=== PATIENT | male | born 1995 | race Caucasian/White ===

== ENCOUNTER 2020-03-31 21:18 | Emergency (ER) | payer MEDICAID ==
--- NOTE | 2020-03-31 22:57 | EDM.PDOC ---
ED HPI GENERAL MEDICAL PROBLEM - General Chief Complaint: ENT Problem Stated Complaint: UPPER RIGHT JAW PAIN Time Seen by Provider: 03/31/20 22:52 Source of Information: Reports: Patient History Limitations: Reports: No Limitations - History of Present Illness INITIAL COMMENTS - FREE TEXT/NARRATIVE: pt has upper jaw pain He has a carrious tooth in the postior upper rt molar a juan. Onset: Gradual, Other ( last 2-3 days. ) Duration: Hour(s): Location: Reports: Face Associated Symptoms: Reports: No Other Symptoms Right Upper Face/Facial Pain Score (Numeric/FACES): 9 - Related Data Allergies Allergy/AdvReac Type Severity Reaction Status Date / Time No Known Allergies Allergy Verified 03/31/20 21:42 Home Meds: Home Meds NK [No Known Home Meds] 03/31/20 [History] Past Medical History HEENT History: Reports: Otitis Media - Past Surgical History HEENT Surgical History: Reports: Myringotomy w Tube(s), Other (See Below) Other HEENT Surgeries/Procedures: ear surgery 8 yrs old Social & Family History - Tobacco Use Smoking Status *Q: Never Smoker - Caffeine Use Caffeine Use: Reports: Soda - Recreational Drug Use Recreational Drug Use: No ED ROS ENT - Review of Systems Review Of Systems: See Below Constitutional: Reports: No Symptoms HEENT: Reports: Dental Pain Respiratory: Reports: No Symptoms Cardiovascular: Reports: No Symptoms Endocrine: Reports: No Symptoms GI/Abdominal: Reports: No Symptoms : Reports: No Symptoms Musculoskeletal: Reports: No Symptoms Skin: Reports: No Symptoms Neurological: Reports: No Symptoms Psychiatric: Reports: No Symptoms ED EXAM, ENT - Physical Exam Exam: See Below Text/Narrative:: pt has pain in the upper molar area on the rt. Exam Limited By: No Limitations General Appearance: Alert, Anxious, Mild Distress Ears: Normal TMs Nose: Normal Inspection Mouth/Throat: Dental Tenderness, Other (pt is very tender when his most post upper rt molar has pressure on it. pt has very carrious teeth. ) Head: Atraumatic Neck: Normal Inspection Respiratory/Chest: No Respiratory Distress Cardiovascular: Regular Rate, Rhythm Course - Vital Signs Last Recorded V/S: Last Vital Signs Temp 36.6 C 03/31/20 21:36 Pulse 73 03/31/20 21:36 Resp 16 03/31/20 21:36 BP 151/100 H 03/31/20 21:36 Pulse Ox 96 03/31/20 21:36 - Orders/Labs/Meds Meds: Medications Discontinued Medications Generic Name Dose Route Start Last Admin Trade Name Norberto PRN Reason Stop Dose Admin Ketorolac Tromethamine 60 mg 03/31/20 22:58 03/31/20 23:02 Toradol IM 03/31/20 22:59 60 mg ONETIME ONE Administration - Re-Assessments/Exams Free Text/Narrative Re-Assessment/Exam: 03/31/20 22:56 pt was given torodol 60 mg im. Departure - Departure Time of Disposition: 22:57 Disposition: Home, Self-Care 01 Condition: Fair Clinical Impression: Infected tooth - Discharge Information Instructions: Dental Abscess, [id number] Referrals: PCP,None [Primary Care Provider] - Forms: ED Department Discharge Additional Instructions: take antibiotic as directed. follow up with the dental clinic on Saturday. Care Plan Goals: tramodol 50 mg q6h, amoxicillin 500mg tid, dental referal for Saturday. Sepsis Event Note (ED) - Evaluation Sepsis Screening Result: No Definite Risk
[2020-03-31] MEDS ORDERED: Ketorolac 60 MG/2 ML SDV IM ONE (22:58)
== END 2020-03-31 23:16 | disposition home or self-care (01) ==
LOC: JP.ED 21:18
DX: K04.7 Periapical abscess without sinus (principal); K02.9 Dental caries, unspecified
CPT/HCPCS: 96372; 99282; J1885

== ENCOUNTER 2020-05-12 11:56 | Emergency (ER) | payer MEDICAID ==
[2020-05-12] MEDS ORDERED: Ketorolac 60 MG/2 ML SDV IM ONE (13:09)
--- NOTE | 2020-05-12 13:31 | EDM.PDOC ---
ED HPI GENERAL MEDICAL PROBLEM - General Chief Complaint: Back Pain or Injury Stated Complaint: BACK PAIN Time Seen by Provider: 05/12/20 13:00 Source of Information: Reports: Patient History Limitations: Reports: No Limitations - History of Present Illness INITIAL COMMENTS - FREE TEXT/NARRATIVE: 24-year-old male who was carrying groceries into his house last evening when he became lightheaded and he thinks he fainted. He woke up with low back pain and lower extremity pain in his calves bilaterally. He took some ibuprofen, a second dose this morning but he still having trouble walking and having soreness in his leg so came in to be checked. He has some focal tenderness in his lower back. No nausea or vomiting, head injury, neck pain, difficulty breathing or concerns of seizures. Onset: Sudden Duration: Hour(s): (It was 14 hours ago when he fell) Location: Reports: Back, Lower Extremity, Left, Lower Extremity, Right Quality: Reports: Burning, Sharp Worsens with: Reports: Movement Context: Reports: Trauma Lower Back Pain Score (Numeric/FACES): 8 - Related Data Allergies Allergy/AdvReac Type Severity Reaction Status Date / Time coconut oil Allergy Vomiting Verified 05/12/20 12:54 Home Meds: Home Meds NK [No Known Home Meds] 03/31/20 [History] Past Medical History HEENT History: Reports: Otitis Media - Past Surgical History HEENT Surgical History: Reports: Myringotomy w Tube(s), Other (See Below) Other HEENT Surgeries/Procedures: ear surgery 8 yrs old Social & Family History - Tobacco Use Tobacco Use Status *Q: Never Tobacco User - Caffeine Use Caffeine Use: Reports: Soda - Recreational Drug Use Recreational Drug Use: No ED ROS GENERAL - Review of Systems Review Of Systems: See Below Constitutional: Denies: Fever, Chills Respiratory: Reports: No Symptoms Cardiovascular: Reports: No Symptoms GI/Abdominal: Reports: No Symptoms Skin: Denies: Bruising (No bruising of his back or legs) Neurological: Denies: Paresthesia (No numbness to the lower extremities, only pain) Psychiatric: Reports: No Symptoms ED EXAM,LOWER BACK PAIN/INJURY - Physical Exam Exam: See Below Exam Limited By: No Limitations General Appearance: Alert, No Apparent Distress (Looks uncomfortable when trying to move or walk) Head: Atraumatic Neck: Normal Inspection, Supple, Non-Tender Respiratory/Chest: Lungs Clear Extremities: Other (Some discomfort with palpation of the calves bilaterally, also increased back pain with straight leg raising bilateral but no radiculopathy) Neurological: Oriented x 3, Abnormal Gait (Gait is painful, slow) Psychiatric: Flat Affect Skin Exam: Warm, Dry Course - Vital Signs Last Recorded V/S: Last Vital Signs Temp 97.5 F 05/12/20 12:57 Pulse 110 H 05/12/20 12:57 Resp 12 05/12/20 12:57 BP 144/89 H 05/12/20 12:57 Pulse Ox 98 05/12/20 12:57 - Orders/Labs/Meds Meds: Medications Discontinued Medications Generic Name Dose Route Start Last Admin Trade Name Norberto PRN Reason Stop Dose Admin Ketorolac Tromethamine 60 mg 05/12/20 13:09 05/12/20 13:13 Toradol IM 05/12/20 13:10 60 mg ONETIME ONE Administration - Re-Assessments/Exams Free Text/Narrative Re-Assessment/Exam: 05/12/20 13:30 Patient was given 60 mg of IM Toradol followed by and a lumbar spine x-ray because we do not know the mechanism of injury. Mainly to rule out a compression fracture. 05/12/20 13:32 Back x-ray is completely normal, patient was encouraged to increase activity as tolerated. Continue with ibuprofen as needed. Recheck next week if concerns of not healing satisfactorily, a physical therapy consultation may be warranted. Departure - Departure Time of Disposition: 13:40 Disposition: Home, Self-Care 01 Clinical Impression: Low back strain Qualifiers: Encounter type: initial encounter Qualified Code(s): S39.012A - Strain of muscle, fascia and tendon of lower back, initial encounter - Discharge Information Instructions: Lumbar Strain Referrals: PCP,None [Primary Care Provider] - Forms: ED Department Discharge Care Plan Goals: Continue with ibuprofen, increase activity as tolerated and consider rechecking next week if not improving satisfactorily. Gentle stretching may be helpful as well. Sepsis Event Note (ED) - Evaluation Sepsis Screening Result: No Definite Risk - Focused Exam Vital Signs: Vital Signs Temp Pulse Resp BP Pulse Ox 05/12/20 12:57 97.5 F 110 H 12 144/89 H 98 05/12/20 12:30 97.5 F 110 H 12 144/89 H 98
--- NOTE | 2020-05-12 14:10 | CR ---
Lumbar Spine 2 or 3V CLINICAL HISTORY: Fall, back pain FINDINGS: The vertebral body heights are maintained. Disc spaces and alignment are also maintained. Transverse and spinous processes and pedicles are intact IMPRESSION: Negative
== END 2020-05-12 13:41 | disposition home or self-care (01) ==
LOC: JP.ED 11:56
DX: S39.012A Strain of muscle, fascia and tendon of lower back, initial encounter (principal); Z91.018 Allergy to other foods; X50.9XXA Other and unspecified overexertion or strenuous movements or postures, initial encounter
CPT/HCPCS: 72100; 96372; 99283; J1885

== ENCOUNTER 2020-07-10 17:14 | Emergency (ER) | payer MEDICAID ==
--- NOTE | 2020-07-10 17:57 | EDM.PDOC ---
ED HPI GENERAL MEDICAL PROBLEM - General Chief Complaint: ENT Problem Stated Complaint: RT EAR PAIN, PLUGGED Time Seen by Provider: 07/10/20 17:40 Source of Information: Reports: Patient History Limitations: Reports: No Limitations - History of Present Illness INITIAL COMMENTS - FREE TEXT/NARRATIVE: 24-year-old male with right-sided hearing loss and pressure for the past 1 to 2 days. No significant pain, no cold symptoms. Onset: Gradual Duration: Day(s): (2 to 3 days of symptoms) Location: Reports: Other (Right ear) Right Ear Pain Score (Numeric/FACES): 2 - Related Data Allergies Allergy/AdvReac Type Severity Reaction Status Date / Time coconut oil Allergy Vomiting Verified 07/10/20 17:32 Home Meds: Home Meds NK [No Known Home Meds] 03/31/20 [History] Past Medical History HEENT History: Reports: Otitis Media Neurological History: Reports: Migraines - Past Surgical History HEENT Surgical History: Reports: Myringotomy w Tube(s), Other (See Below) Other HEENT Surgeries/Procedures: ear surgery 8 yrs old Social & Family History - Tobacco Use Tobacco Use Status *Q: Never Tobacco User - Caffeine Use Caffeine Use: Reports: Energy Drinks - Recreational Drug Use Recreational Drug Use: No ED ROS ENT - Review of Systems Review Of Systems: See Below Constitutional: Denies: Fever, Chills HEENT: Reports: Other (Hearing loss right side) Respiratory: Reports: No Symptoms GI/Abdominal: Denies: Nausea, Vomiting Neurological: Denies: Headache ED EXAM, ENT - Physical Exam Exam: See Below Exam Limited By: No Limitations General Appearance: Alert, No Apparent Distress Ears: Other (Left ear canal is open with a normal TM, the right ear canal is almost totally occluded with wax although I can see a small amount of the tympanic membrane and there does not appear to be any significant erythema) Head: Atraumatic Neck: No: Lymphadenopathy (R), Lymphadenopathy (L) Respiratory/Chest: No Respiratory Distress, Lungs Clear Course - Vital Signs Last Recorded V/S: Last Vital Signs Temp 96.7 F L 07/10/20 17:32 Pulse 79 07/10/20 17:32 Resp 16 07/10/20 17:32 BP 140/85 07/10/20 17:32 Pulse Ox 97 07/10/20 17:32 - Re-Assessments/Exams Free Text/Narrative Re-Assessment/Exam: 07/10/20 17:57 Cerumen was flushed out of the ear canal, he can recheck as needed. 07/10/20 18:05 After a significant portion of the cerumen was removed with water and with a small plastic curette, the patient does have a significant what appears to be purulent effusion behind the eardrum. He will be placed on amoxicillin 500 mg 3 times a day for at least 7 days. Departure - Departure Time of Disposition: 18:14 Disposition: Home, Self-Care 01 Clinical Impression: Right ear impacted cerumen - Discharge Information Instructions: Otitis Media, Pediatric, [facility] Referrals: PCP,None [Primary Care Provider] - Forms: ED Department Discharge Care Plan Goals: Recheck at the clinic later this week if not improving satisfactorily. Take antibiotic 3 times a day for at least 7 days. Ibuprofen may help with discomfort. Sepsis Event Note (ED) - Evaluation Sepsis Screening Result: No Definite Risk
== END 2020-07-10 18:15 | disposition home or self-care (01) ==
LOC: JP.ED 17:14
DX: H61.21 Impacted cerumen, right ear (principal); Z91.018 Allergy to other foods
CPT/HCPCS: 69210; 99283-25

== ENCOUNTER 2020-10-31 20:50 | Emergency (ER) | payer OTHER, MEDICAID ==
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
--- NOTE | 2020-11-01 08:55 | CR ---
Shoulder Comp Rt CLINICAL HISTORY: Pain FINDINGS: There is no acute fracture or dislocation in the right shoulder. Articular surfaces are smooth Impression: Negative
== END 2020-10-31 22:29 | disposition home or self-care (01) ==
LOC: JP.ED 20:50
DX: S40.011A Contusion of right shoulder, initial encounter (principal); Z91.048 Other nonmedicinal substance allergy status; V29.9XXA Motorcycle rider (driver) (passenger) injured in unspecified traffic accident, initial encounter
CPT/HCPCS: 73030-26-RT; 73030-RT; 99283

== ENCOUNTER 2022-01-25 22:54 | Emergency (ER) | payer MEDICAID | END 2022-01-25 23:30 | disposition home or self-care (01) | LOC: JP.ED 22:54 | DX: H60.331 Swimmer's ear, right ear (principal); H65.92 Unspecified nonsuppurative otitis media, left ear; Z91.048 Other nonmedicinal substance allergy status | CPT/HCPCS: 99282; 99283 ==

== ENCOUNTER 2023-05-30 03:49 | Emergency (ER) | payer MEDICAID | END 2023-05-30 04:07 | disposition home or self-care (01) | LOC: JP.ED 03:49 | DX: H65.92 Unspecified nonsuppurative otitis media, left ear (principal); Z91.018 Allergy to other foods | CPT/HCPCS: 99282 ==